=== PATIENT | male | born 1960 | race Caucasian/White ===

== ENCOUNTER 2017-03-21 04:00 | Emergency (ER) | payer OTHER ==
[~2017-03-21] VITALS: Ht 165.1 cm; Wt 84.3 kg
[~2017-03-21 04:00] MED LIST: BACTRIM,SEPT1 TABLET PO; BUSPAR10 MG PO; CILOSTAZOL100 MG PO; CLINDAMYCIN HC300 MG PO; COUMADIN,JANTOV10 MG PO; COUMADIN,JANTOVE4 MG PO; KEFLEX500 MG PO; MULTIPLE VITAM1 EACH PO; NEURONTIN400 M1 PO; NEURONTIN600 MG PO; PEN-VEE K,VEET500 MG PO; PERCOCET 5/31 TABLET PO; PROZAC; PROZAC40 MG PO; TRAMADOL HCL50 MG PO; VENTOLIN HFA18 GM IH; VICODIN; VICODIN 5-5001 EACH PO; VICODIN,LORT1 TABLET PO; VISTARIL25 M1 PO; VISTARIL25 MG PO; XARELTO20 MG PO
[2017-03-21 05:35] LABS: HEMATOCRIT 38.1 % (38.0-50.0); MCH 29.6 PG (29.0-34.0); MCHC 32.3 G/DL (30.0-36.0); MCV 91.6 FL (86-99); MEAN PLAT.VOLUME 9.2 uM^3 (9.0-12.4); PLATELET COUNT 304 K/uL (156-360); RBC DIS.WIDTH-CV 13.6 % (11.8-14.6); RBC DIS.WIDTH-SD 46.3 % (39-53); RED BLOOD COUNT 4.16 M/uL (4.00-5.50); WHITE BLOOD COUNT 7.5 K/uL (4.1-10.2)
[2017-03-21 05:43] LABS: CHLORIDE 103 mEq/L (99-109); POTASSIUM 4.2 mEq/L (3.7-5.4); SODIUM 138 mEq/L (136-147)
[2017-03-21 05:44] LABS: GLUCOSE 75 mg/dL (70-99)
[2017-03-21 05:46] LABS: ANION GAP 9 MEQ/L (2-14)
[2017-03-21 05:48] LABS: GFR ESTIMATE (CALCULATED) > 59 mL/min/
[2017-03-21 05:49] LABS: UREA NITROGEN (BUN) 11 mg/dL (9-23)
[2017-03-21 05:54] VITALS: BP 145/90
== END 2017-03-21 05:55 | disposition home or self-care (01) ==
LOC: EME 04:00
PROVIDERS: Physician Assistant
DX: T50.905A Adverse effect of unspecified drugs, medicaments and biological substances, initial encounter (principal); I10 Essential (primary) hypertension; Z86.718 Personal history of other venous thrombosis and embolism
CPT/HCPCS: 80048; 85027; 99281; 99284; Q0177

== ENCOUNTER 2017-11-12 20:50 | Emergency (ER) | payer OTHER ==
[~2017-11-12] VITALS: Ht 165.1 cm; Wt 87.0 kg
[2017-11-12 21:11] LABS: BASOPHIL (%) 0.6 % (0-1); EOSINOPHIL (%) 2.9 % (0-5); EOSINOPHIL COUNT 0.2 K/uL (0-0.3); HEMOGLOBIN 10.8 G/DL (12.5-16.6); LYMPHOCYTE (%) 22.3 % (15-42); LYMPHOCYTE COUNT 1.4 K/uL (1.0-2.8); MCH 29.8 PG (29.0-34.0); MCHC 32.7 G/DL (30.0-36.0); MCV 90.9 FL (86-99); MONOCYTE (%) 8.3 % (3-12); MONOCYTE COUNT 0.5 K/uL (0-0.8); NEUTROPHIL (%) 64.9 % (45-76); PLATELET COUNT 282 K/uL (156-360); RBC DIS.WIDTH-CV 13.9 % (11.8-14.6); RBC DIS.WIDTH-SD 46.3 % (39-53); RED BLOOD COUNT 3.63 M/uL (4.00-5.50); WHITE BLOOD COUNT 6.2 K/uL (4.1-10.2)
[2017-11-12 21:19] LABS: CHLORIDE 103 mEq/L (99-109); POTASSIUM 4.2 mEq/L (3.7-5.4); SODIUM 140 mEq/L (136-147)
[2017-11-12 21:20] LABS: GLUCOSE 109 mg/dL (70-99)
[2017-11-12 21:24] LABS: CREATININE 1.1 mg/dL (0.6-1.3); GFR ESTIMATE (CALCULATED) > 59 mL/min/ (58.99-99999)
[2017-11-12 21:25] LABS: UREA NITROGEN (BUN) 13 mg/dL (9-23)
[2017-11-12] MEDS ORDERED: VIBRAMYCIN100 MG PO (22:49)
[2017-11-12 23:46] VITALS: BP 160/79
== END 2017-11-12 23:47 | disposition home or self-care (01) ==
LOC: EME 20:50
DX: L03.115 Cellulitis of right lower limb (principal); L03.116 Cellulitis of left lower limb; R60.0 Localized edema; R03.0 Elevated blood-pressure reading, without diagnosis of hypertension; Z86.718 Personal history of other venous thrombosis and embolism; Z79.01 Long term (current) use of anticoagulants; K21.9 Gastro-esophageal reflux disease without esophagitis; F32.9 Major depressive disorder, single episode, unspecified; Z88.5 Allergy status to narcotic agent
CPT/HCPCS: 80048; 83605; 85025; 93970; 99281; 99284